=== PATIENT | female | born 1980 | race Caucasian/White ===

== ENCOUNTER 2018-09-16 19:12 | Emergency (ER) | payer SELFPAY ==
[~2018-09-16] VITALS: Ht 170.2 cm; Wt 99.8 kg
[2018-09-16 19:20] VITALS: BP 133/95
--- NOTE | 2018-09-16 19:20 | NUR ---
PATIENT TRIAGED. VSS AT THIS TIME, SENT TO ER LOBBY.
--- NOTE | 2018-09-16 20:15 | NUR ---
PT TAKEN TO CHAIR E
--- NOTE | 2018-09-16 20:16 | NUR ---
SORIN Sheets examining patient.
[2018-09-16] MEDS ORDERED: KETOROLAC 30 MG/ML VIAL IM ONE (20:30)
[2018-09-16] MEDS ORDERED: DEXAMETHASONE 10 MG/ML VIAL IM ONE (20:30)
[2018-09-16 20:55] VITALS: BP 121/78
--- NOTE | 2018-09-16 20:55 | NUR ---
Patient discharged with v/s stable. Written and verbal after care instructions given and explained. Patient alert, oriented and verbalized understanding of instructions. Ambulatory with steady gait. All questions addressed prior to discharge. ID band removed. Patient advised to follow up with PMD. Rx of TRAMADOL, NAPROXENE, PREDNISONE given. Patient educated on indication of medication including possible reaction and side effects. Opportunity to ask questions provided and answered.
== END 2018-09-16 20:55 | disposition home or self-care (01) ==
LOC: MED 19:12
DX: M25.812 Other specified joint disorders, left shoulder (principal)
CPT/HCPCS: 96372; 99283; J1100; J1885